=== PATIENT | female | born 2000 | race African-American/Black ===

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

== ENCOUNTER 2019-02-21 19:21 | Emergency (ER) | payer MEDICAID, OTHER ==
--- NOTE | 2019-02-21 19:52 | ED ---
Skin Complaint - HPI Summary HPI Summary: This patient is a 18 year old female presenting to [facility] with a chief complaint of abscess to her left inner breast since approximately four days ago. She states she is prone to these abscesses and has not had one in about a year. She states they would normally bertha it. Patient states she has been applying hot compress but area is progressively getting worse. She states they always happen in the same places and she has been trying to get surgery for it. She states increased pain when she is laying supine. Medications reviewed, allergies noted. - History of Current Complaint Chief Complaint: EDRashSkinAbscess Time Seen by Provider: 02/21/19 19:46 Stated Complaint: ABCESS LT BREAST PER PT Hx Obtained From: Patient Hx Last Menstrual Period: 12/28/2017 Onset/Duration: Started Days Ago Pain Intensity: 10 Pain Scale Used: 0-10 Numeric - Allergy/Home Medications Allergies/Adverse Reactions: Allergies Allergy/AdvReac Type Severity Reaction Status Date / Time No Known Allergies Allergy Verified 02/21/19 19:27 PMH/Surg Hx/FS Hx/Imm Hx Endocrine/Hematology History: Reports: Hx Diabetes - "Borderline" per patient Cardiovascular History: Denies: Hx Congenital Heart Disease Respiratory History: Denies: Hx Bronchopulmonary Dysplasia, Hx Chronic Bronchitis Neurological History: Denies: Hx CVA, Hx Dementia - Surgical History Surgery Procedure, Year, and Place: TONSILLECTOMY Infectious Disease History: No Infectious Disease History: Denies: Traveled Outside the [place] in Last 30 Days - Family History Known Family History: Positive: Diabetes Negative: Seizure Disorder - Social History Alcohol Use: Occasionally Substance Use Type: Reports: Marijuana Smoking Status (MU): Never Smoked Tobacco Review of Systems Negative: Fever Positive: Other - Abscess over left breast and associated pain. All Other Systems Reviewed And Are Negative: Yes Physical Exam - Summary Physical Exam Summary: Constitutional: Well-developed, Well-nourished, Alert. (-) Distressed Skin: Warm, Dry. Over the medial margin of the left breast, fluctuance, 3x3 abscess with multiple incision scars present. No fluctuance or drainage tracking into the breast itself. HENT: Normocephalic; Atraumatic Eyes: Conjunctiva normal Neck: Musculoskeletal ROM normal neck. (-) JVD, (-) Stridor, (-) Tracheal deviation Cardio: Rhythm regular, rate normal, Heart sounds normal; Intact distal pulses; Radial pulses are 2+ and symmetric. (-) Murmur Pulmonary/Chest wall: Effort normal. (-) Respiratory distress, (-) Wheezes, (-) Rales Abd: Soft, (-) tenderness, (-) Distension, (-) Guarding, (-) Rebound Musculoskeletal: (-) Edema Lymph: (-) Cervical adenopathy Neuro: Alert, Oriented x3 Psych: Mood and affect Normal Triage Information Reviewed: Yes Vital Signs On Initial Exam: Initial Vitals Temp Pulse Resp BP Pulse Ox 99.4 F 94 18 141/81 98 02/21/19 19:23 02/21/19 19:23 02/21/19 19:23 02/21/19 19:23 02/21/19 19:23 Vital Signs Reviewed: Yes Procedures - Sedation Patient Received Moderate/Deep Sedation with Procedure: No - Incision and Drainage Left Medial Breast Anesthesia: Local, Lidocaine - 8.0% Instrument(s): Scalpel - 11 blade Packing: Drain - Moderate amount of puss Diagnostics - Vital Signs Vital Signs Temp Pulse Resp BP Pulse Ox 02/21/19 19:23 99.4 F 94 18 141/81 98 - Laboratory Lab Statement: Any lab studies that have been ordered have been reviewed, and results considered in the medical decision making process. Course/Dx - Course Course Of Treatment: Patient is here with a left chest wall abscess. Patient's had recurrent abscesses in the same location. Patient does not have evidence of an actual breast abscess. Patient had a bedside ultrasound which showed a small, contained abscess cavity. Patient had successful incision and drainage of her abscess. Patient had no surrounding cellulitis and was not started on antibiotics. - Diagnoses Provider Diagnoses: Breast abscess Discharge ED - Sign-Out/Discharge Documenting (check all that apply): Patient Departure - Discharge - Discharge Plan Condition: Stable Disposition: HOME Patient Education Materials: Abscess (ED) Referrals: Kenyetta Lopez NP [Primary Care Provider] - 1 Day Additional Instructions: Motrin 600 Mg every 6 hours per pain. Change gauze as needed. Come back if you have fever, worsening redness, worsening swelling,. - Billing Disposition and Condition Condition: STABLE Disposition: Home - Attestation Statements Document Initiated by Scribe: Yes Documenting Scribe: Major Huber Provider For Whom Scribe is Documenting (Include Credential): Brian Mendez MD Scribe Attestation: I, Major Huber, scribed for Brian Mendez MD on 02/21/19 at 2129. Scribe Documentation Reviewed: Yes Provider Attestation: The documentation as recorded by the scribe, Major Huber accurately reflects the service I personally performed and the decisions made by me, Brian Mendez MD Status of Scribe Document: Viewed
[2019-02-21] MEDS ORDERED: Lidocaine 1% MPF ** 5 ML VIAL INJ ONE (19:54)
[2019-02-21] MEDS ORDERED: Morphine 4 MG/ML VIAL (1 ml) 4 MG/ML VIAL IM ONE (20:21)
[2019-02-21] MEDS ORDERED: Ibuprofen TAB* 600 MG PO ONE (20:57)
[2019-02-21 21:17] VITALS: BP 140/90
== END 2019-02-21 21:23 | disposition home or self-care (01) ==
LOC: ED 19:21
DX: N61.1 Abscess of the breast and nipple (principal)
CPT/HCPCS: 10060; 96372; 99283; A9270-GY; J2270

== ENCOUNTER 2019-03-15 07:33 | Emergency (ER) | payer MEDICAID ==
[2019-03-15] MEDS ORDERED: Lidocaine 2.5%/Prilocain 2.5%* 5 GM TUBE TOPICAL ONE (07:50)
--- OUTSIDE RECORDS SUMMARY | 2019-03-15 07:56 | XMS REPORT | Summary of Care ---
:2000 Author Organization [facility] Address [address] [address] Care Team Providers Name Role Phone Nallely Nunez Primary Care Provider Reason for Referral Refer to Department Only (Routine) Status Reason Specialty Diagnoses / Referred By Referred To Procedures Contact Contact Pending Review PLASTIC SURGERY Diagnoses Breast abscess of female Mayra, / [facility] [address] [place] [address] Reason for Visit Reason Comments Establish Care abcess on both breast started 2yrs ago, currently has some on both breast Encounter Details Date Type Department Care Team Description 03/14/2019 Office Visit Mounika Nunez, Anxiety and depression ( Primary Dx); Crispin Browning NP Encounter for screening for human immunodeficiency virus (HIV); [address] [place] [address] Encounter for screening for diabetes mellitus; [place] [address] [place] [address] Need for vaccination; [phone] Screening for lipid disorders; [phone] Breast abscess of female (Fax) Allergies No Known Allergiesdocumented as of this encounter (statuses as of 03/14/2019) Medications Medication Sig Dispensed Refills Start Date End Date Status metFORMIN (GLUCOPHAGE) Take 500 mg by 0 Active 500 MG Oral Tab mouth TWICE DAILY. Cholecalciferol (VITAMIN Take by mouth 0 Active D3 PO) DAILY. buPROPion XL (WELLBUTRIN Take 1 Tab by 30 Tab 1 03/14/2019 Active XL) 150 MG Oral TABLET SR mouth DAILY. 24 HR 24 hour tabletIndications: Anxiety and depression documented as of this encounter (statuses as of 03/14/2019) Active Problems Problem Noted Date Pre-diabetes documented as of this encounter (statuses as of 03/14/2019) Immunizations Name Administration Dates Next Due Influenza (IM) Preservative Free 03/14/2019 documented as of this encounter Social History Tobacco Use Types Packs/Day Years Used Date Never Smoker Smokeless Tobacco: Never Used Alcohol Use Drinks/Week oz/Week Comments Never Alcohol Habits Answer Date Recorded How often do you have a drink containing alcohol? Never 03/14/2019 How many drinks containing alcohol do you have on a typical Not asked day when you are drinking? How often do you have six or more drinks on one occasion? Not asked Sex Assigned at Date Recorded Not on file Job Start Date Occupation Industry Not on file Not on file Not on file Travel History Travel Start Travel End No recent travel history available. documented as of this encounter Last Filed Vital Signs Vital Sign Reading Time Taken Comments Blood Pressure 122/58 03/14/2019 2:03 PM EST Pulse 76 03/14/2019 2:03 PM EST Temperature 36.9 03/14/2019 2:03 PM EST C (98.4 F) Respiratory Rate - - Oxygen Saturation 98% 03/14/2019 2:03 PM EST Inhaled Oxygen Concentration - - Weight 130.6 kg (288 lb) 03/14/2019 2:03 PM EST Height 170.2 cm (5' 7") 03/14/2019 2:03 PM EST Body Mass Index 45.11 03/14/2019 2:03 PM EST documented in this encounter Patient Instructions Patient InstructionsNallely Nunez NP - 03/14/2019 2:00 PM EST Schedule eye exam [facility] - [phone] List of therapists given. Referral to plastic surgery ([place]) - please schedule this appointment on your way out Wellbutrin - one tab daily. Fasting labs today - I'll let you know if you should restart the metformin Follow up in 1-2 weeks. You may feel under the weather after receiving the Influenza vaccine(s), and your arm may be sore - you can take tylenol and ibuprofen over the counter for this. This is an expected immune response tothe vaccine. I have prescribed you a medication for Depression and Anxiety called Wellbutrin. Please take this once daily and follow up with me in 1-2 weeks, at which point we can increase your dose if tolerated. Some side effects of these medications can include decreased sexual desire, weight gain, and drowsiness. I have given you a list of therapists in the area, please call to get in to see one of your choice. As we discussed this medication increases risk of suicide in your age group. If you have any thoughts of harming yourself or others, please go immediately to the emergency room. Suicide Hotline - Depression WHAT YOU NEED TO KNOW: What is depression? Depression is a medical condition that causes feelings of sadness or hopelessness that do not go away. Depression may cause you to lose interest in things you used to enjoy. These feelings may interfere with your daily life. What causes or increases my risk for depression? Depression may be caused by changes in brain chemicals that affect your mood. Your risk for depression may be higher if you have any of the following: Stressful events such as the of a loved one, unemployment, childhood trauma, divorce, or domestic abuse A chronic medical condition such as diabetes, heart disease, or cancer Parents, siblings, or other family members with a history of depression Drug or alcohol abuse What are the signs and symptoms of depression? Appetite changes, or weight gain or loss Trouble going to sleep or staying asleep, or sleeping too much Fatigue or lack of energy Feeling restless, irritable, or withdrawn Feeling worthless, hopeless, discouraged, or guilty Trouble concentrating, remembering things, doing daily tasks, or making decisions Thoughts about hurting or killing yourself How is depression diagnosed? Your healthcare provider will ask about your symptoms and how long youhave had them. He or she will ask if you have any family members with depression. Tell your healthcare provider about any stressful events in your life. He or she may ask about any other health conditions or medicines you take. How is depression treated? Therapy may be used to treat your depression. A therapist will help you learn to cope with your thoughts and feelings. This can be done alone or in a group. It may also be done with family members or a significant other. Antidepressant medicine may be given to improve or balance your mood. You may need to take this medicine for several weeks before you begin to feel better. Tell your healthcare provider about anyside effects or problems you have with your medicine. The type or amount of medicine may need to be changed. How can I manage depression? Get regular physical activity. Try to exercise for 30 minutes, 3 to 5 days a week. Work with your healthcare provider to develop an exercise plan that you enjoy. Physical activity may improve your symptoms. Get enough sleep. Create a routine to help you relax before bed. You can listen to music, read, or do yoga. Try to go to bed and wake up at the same time every day. Sleep is important for emotional health. Eat a variety of healthy foods from all of the food groups. A healthy meal plan is low in fat,salt, and added sugar. Ask your healthcare provider for more information about a meal plan that is right for you. Do not drink alcohol or use drugs. Alcohol and drugs can make your symptoms worse. Call 911 for any of the following: You think about harming yourself or someone else. When should I contact my healthcare provider? Your symptoms do not improve. You cannot make it to your next appointment. You have new symptoms. You have questions or concerns about your condition or care. CARE AGREEMENT: You have the right to help plan your care. Learn about your health condition and how it may be treated. Discuss treatment options with your caregivers to decide what care you want to receive. You always have the right to refuse treatment. The above information is an student financial aid manager only. It is not intended as medical advice for individual conditions or treatments. Talk to your doctor, nurse or pharmacist before following any medical regimen to see if it is safe and effective for you. 2016 [employer]. Information is for End User's use only and may not be sold, redistributed or otherwise used for commercial purposes. All illustrations and images included in CareNotes are the copyrighted property of [employer] or [employer]. , Anxiety WHAT YOU NEED TO KNOW: What do I need to know about anxiety? Anxiety is a condition that causes you to feel worry or fear.Family or work stress, smoking, caffeine, and alcohol can increase your risk for anxiety. Certain medicines or health conditions can also increase your risk. Anxiety may begin gradually and can become a long-term condition if it is not managed or treated. What other common signs and symptoms may occur with anxiety? Fatigue or muscle tightness Shaking, restlessness, or irritability Problems focusing Trouble sleeping Feeling jumpy, easily startled, or dizzy Rapid heartbeat or shortness of breath How is anxiety diagnosed? Your healthcare provider will ask when your symptoms began, what triggersthem, and if anxiety affects your daily activities. He will also ask about your medical history and if you have family members with a similar condition. He may ask about your past and present alcohol, nicotine, or drug use. Blood tests are done to check your thyroid hormone levels. These tests can also give information about your overall health, and may help find the cause of your symptoms. An EKG test records your heart rhythm and how fast your heart beats. It may be used to see if a heart problem is causing your symptoms. How is anxiety treated? You may get medicines to help you feel calm and relaxed , and decrease your symptoms. Healthcare providers will treat any medical condition that may be causing your symptoms. How can I manage anxiety? Go to counseling as directed. Cognitive behavioral therapy can help you understand and change how you react to events that trigger your symptoms. Find ways to manage your symptoms. Activities such as exercise, meditation , or listening to music can help you relax. Practice deep breathing. Breathing can change how your body reacts to stress. Focus on taking slow, deep breaths several times a day, or during an anxiety attack. Breathe in through your nose andout through your mouth. Do not smoke. Nicotine can increase your anxiety. Do not use e-cigarettes or smokeless tobaccoin place of cigarettes or to help you quit. They still contain nicotine. Ask your healthcare provider for information if you currently smoke and need help quitting. Do not have caffeine. Caffeine can make your symptoms worse. Do not have foods or drinks that are meant to increase your energy level. Limit or do not drink alcohol. Ask your healthcare provider if alcohol is safe for you. You may not be able to drink alcohol if you take certain anxiety or depression medicines. Limit alcohol to 1 drink per day if you are a woman. Limit alcohol to 2 drinks per day if you are a man. A drink of alcohol is 12 ounces of beer, 5 ounces of wine, or 1 ounces of liquor. Call 911 if: You have chest pain, tightness, or heaviness that may spread to your shoulders, arms, jaw, neck, or back. You feel like hurting yourself or someone else. When should I seek immediate care? You feel dizzy, lightheaded, or faint. When should I contact my healthcare provider? Your symptoms get worse or do not get better with treatment. You think your medicine may be causing side effects. Your anxiety keeps you from doing your regular daily activities. You have new symptoms since your last visit. You have questions or concerns about your condition or care. CARE AGREEMENT: You have the right to help plan your care. Learn about your health condition and how it may be treated. Discuss treatment options with your caregivers to decide what care you want to receive. You always have the right to refuse treatment. The above information is an student financial aid manager only. It is not intended as medical advice for individual conditions or treatments. Talk to your doctor, nurse or pharmacist before following any medical regimen to see if it is safe and effective for you. 2016 [employer]. Information is for End User's use only and may not be sold, redistributed or otherwise used for commercial purposes. All illustrations and images included in CareNotes are the copyrighted property of [employer]. or [employer]. Patient Education Intrauterine Devices (IUD) The Basics Written by the doctors and editors at [facility] What is an intrauterine device?An intrauterine device (IUD) is a type of control. It is a small, T-shaped device that a doctor or nurse puts in your uterus by going through your vagina and cervix (figure 1). These devices are made of flexible plastic and have 2 thin plastic stringsthat hang out of the cervix. They are very small a little more than 1 inch (2.5 cm ) in width and length. An IUD is one of the safest, most effective methods for preventing . It is a good choice for women or teens who do not want to get for at least 1 year. Some women use IUDs for reasons other than control. For example, 1 type of IUD can be used to treat heavy, painful periods. The other type can be used to prevent if it is put in within 5 days after a woman has sex without control. This is known as "emergency contraception." What are the different types of IUDs?There are 2 types of IUDs available in the [facility]. One type releases copper, and the other type releases the hormone progestin. Copper-containing IUD There is only 1 copper-containing IUD. It is called Paragard (picture 1) and can stay in your uterus for up to 10 years to prevent . Some women who use it getheavier or longer periods than they had before getting the IUD. Paragard also can be used for emergency contraception. Progestin-releasing IUD There are 4 progestin-releasing IUDs, called Mirena, Kyleena, Megan, and Liletta. Mirena (figure 2), Kyleena, and Liletta can stay in your uterus for up to 5 years to prevent . Megan can stay in place for up to 3 years. Many women who use progestin-releasing IUDs have nurse substance abuse, less painful periods than they had before getting the IUD. Some women stop getting a period at all, but this is not harmful and does not need to be treated. Regular periods return when the device is taken out. Other types of IUDs are also available outside of the [place]. What are the benefits of using an IUD?The benefits of using an IUD include: IUDs are very effective. Fewer than 1 in 100 women who use these devices get during the first year of using them. You do not have to remember to do anything or take any control medicines on a regular basis. IUDs have few side effects. IUDs do not contain estrogen, a hormone that some women can't or don't want to take. If you decide you want to get , you can have the IUD taken out. If you use an IUD for several years, it costs less overall than many other types of control. That's because there are no costs after you have it inserted. There is evidence that using an IUD lowers your risk of getting cervical cancer. What are the downsides of an IUD?The downsides of an IUD include: Unlike condoms, an IUD does not protect you against infections you can catch during sex, called"sexually transmitted diseases" or "STDs." But you and your partner can use a condom to prevent spreading infections. There is a small chance the IUD will come out during your period. If this happens, you will need a new IUD. If you see your IUD in your underwear, on your pad, or in the toilet, call your doctor or nurse. The initial cost is higher than the cost of other methods. But, there are no more costs after it is inserted. Only a doctor or nurse can insert or remove an IUD. You should not get an IUD if you recently had an infection that spread to your uterus and other nearby organs, called a "pelvic infection." STDs such as chlamydia and gonorrhea can cause pelvic infections. Which type of IUD is best for me?Your nurse or doctor can help you choose the right IUD for you. Paragard might be a good choice if you: Want or need to avoid hormones. Want to avoid big changes in your period, such not having any periods or bleeding or spotting when you might not expect it. Want control for up to 10 years Mirena, Kyleena, Megan, or Liletta might be a good choice if you: Have heavy, painful periods. These IUDs can make your periods nurse substance abuse and less painful. Want control for up to 5 years, depending on which device you choose Does it hurt to have an IUD put in?You will likely feel some discomfort and slight cramping after the nurse or doctor puts the IUD into your uterus. Women who have not had a baby often feel more discomfort than women who have had a baby. The cramps generally go away within a day. Zlsp-[id number]-[id number] pain medicines like ibuprofen (sample brand names: Advil, Motrin) or naproxen ( sample brandname: Aleve) can help cramps go away faster. After the IUD is in place, you should not be able to feel it. Should I see a doctor or nurse?If you have an IUD, see your doctor or nurse right awayif: You have bad pain in your lower belly Your period is late or very different from normal You cannot feel the string of the IUD or if the string seems shorter than usual You think your IUD might have moved or fallen out You had sex with someone who has or might have an STD, or you think you have an STD You have an unexplained fever All topics are updated as new evidence becomes available and our peer review process is complete. This topic retrieved from [employer] on: Jan 01, 2019. Topic 13290 Version 11.0 Release: 27.4.5 - C27.318 [employer]. and/or its affiliates.All rights reserved. figure 1: Female reproductive anatomy These are the internal organs that make up a woman's reproductive system. Graphic 71094 Version 5.0 picture 1: Paragard IUD The copper-releasing intrauterine device (IUD) is called Paragard. It is inserted into the uterus toprevent . Graphic 04766 Version 3.0 figure 2: IUDs This picture [id number] ofIUD. There are different IUDs available. They are placed inside the uterus to help prevent . Graphic 87191 Version 13.0 Consumer Information Use and Disclaimer This information is not specific medical advice and does not replace information you receive from your health care provider. This is only a brief summary of general information. It does NOT include allinformation about conditions, illnesses, injuries, tests, procedures, treatments, therapies, discharge instructions or life-style choices that may apply to you. You must talk with your health care provider for complete information about your health and treatment options. This information should not beused to decide whether or not to accept your health care provider's advice, instructions or recommendations. Only your health care provider has the knowledge and training to provide advice that is right for you.The use of [employer] content is governed by the [employer] Terms of Use. 2019 [employer]. All rights reserved. Copyright 2019[employer]. and/or its affiliates.All rights reserved. documented in this encounter Progress Notes Nallely Nunez NP - 03/14/2019 2:00 PM EST PATIENT: Donald Jackson : 2000 DATE OF SERVICE: 03/14/2019 CHIEF COMPLAINT: Chief Complaint Patient presents with Establish Care abcess on both breast started 2yrs ago, currently has some on both breast Subjective HISTORY OF PRESENT ILLNESS: Donald Jackson is a 18-y.o. female. HPI Here to establish care. [facility] P[facility] - transitioning to adult care. Ran out of metformin and vitamin D - last took the metformin December. 500 mg twice daily. Thinks for prediabetes but no blood work in "years" No antidepressants. Endorses depression and anxiety since about age 15. Never really addressed before. When asked by previous providers she told them no depression but now would like treatment. No suicidal ideation. Feels tired mostly, lack of motivation. Not elaborating on reasons for depression, states "a lot of things have happened in my life". Abscesses on both breasts that are chronic, have been drained several times and keep coming back in the same spot. Has seen surgeon in the past and told if it returns they would do surgery to remove, but has returned a few times and still no suergery. No fevers chills malaise no constituational symptoms no drainage. Went to ER 02/21 and had left side abscess drained, ultrasound done at that time. LMP: Ended on [place]. Irregular - comes when it feels like. Heavy, bad cramps. Since age 14. Has had blood drawn to evaluate. Never treated. She was on control pills for a month but it made the cramps worse. Started on this by firearms specialist. End of 2018. Family or personal history of breast or ovarian cancer: None Eye Exam: >1 year. Blurred vision, she is supposed to wear glasses but her sisters lost them. Dental Exam: 6 months, no dental problems. Specialists: None. Diet: No special diet. Likes junk food - if she eats (skips meals a lot - no breakfast, often no lunch). Water: A lot. Bottles - x6. Exercise: Walks often. Past Medical History: Diagnosis Date Anxiety Asthma Depression Pre-diabetes Metformin Family History Problem Relation Age of Onset No Known Problems Mother Diabetes Father type 2 No Known Problems Sister No Known Problems Brother No Known Problems Sister No Known Problems Sister No Known Problems Sister No Known Problems Maternal Grandmother No Known Problems Maternal Grandfather Stroke Paternal Grandmother Diabetes Paternal Grandmother type 2 Asthma Paternal Grandmother No Known Problems Paternal Grandfather Current Outpatient Medications Medication Sig buPROPion XL (WELLBUTRIN XL) 150 MG Oral TABLET SR 24 HR 24 hour tablet Take 1 Tab by mouth DAILY. Cholecalciferol (VITAMIN D3 PO) Take by mouth DAILY. metFORMIN (GLUCOPHAGE) 500 MG Oral Tab Take 500 mg by mouth TWICE DAILY. No current facility-administered medications for this visit. No Known Allergies Social History Socioeconomic History Marital status: Single Spouse name: Not on file Number of children: Not on file Years of education: Not on file Highest education level: Not on file Occupational History Not on file Social Needs Financial resource strain: Not on file Food insecurity Worry: Not on file Inability: Not on file Transportation needs Medical: Not on file Non-medical: Not on file Tobacco Use Smoking status: Never Smoker Smokeless tobacco: Never Used Substance and Sexual Activity Alcohol use: Never Frequency: Never Drug use: Yes Types: Marijuana Sexual activity: Never Lifestyle Physical activity Days per week: Not on file Minutes per session: Not on file Stress: Not on file Relationships Social connections Talks on phone: Not on file Gets together: Not on file Attends catholic service: Not on file Active member of club or organization: Not on file Attends meetings of clubs or organizations: Not on file Relationship status: Not on file Intimate partner violence Fear of current or ex partner: Not on file Emotionally abused: Not on file Physically abused: Not on file Forced sexual activity: Not on file Other Topics Concern Not on file Social History Narrative Lives with grandmother and grandfather. 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 [employer] Pets: none Over the last 2 weeks, have you been feeling down, depressed, anxious, or hopeless?: 3 Over the past 2 weeks, have you felt little interest or pleasure in doing things ?: 2 Trouble falling or staying asleep, or sleeping too much?: 2 Feeling tired or having little energy?: 2 Poor appetite or overeating?: 3 Feeling bad about yourself or that you are a failure or have let yourself or your family down?: 3 Trouble concentrating on things, such as reading the newspaper or watching TV?: 0 Moving or speaking so slowly that other people notice OR being fidgety and restless?: 0 Thoughts that you would be better off or of hurting yourself in some way?: 2 PHQ-9 TOTAL SCORE: 17 How difficult have these problems made it for you to do your work, take care of things at home or get along with people?: Somewhat difficult In the past 2 years, have you felt depressed or sad most days, even if you felt ok?: Yes REVIEW OF SYSTEMS: Review of Systems Constitutional: Negative for malaise/fatigue. Respiratory: Negative for shortness of breath. Cardiovascular: Negative for chest pain and palpitations. Gastrointestinal: Negative for abdominal pain, nausea and vomiting. Neurological: Negative for headaches. Psychiatric/Behavioral: Positive for depression. Negative for substance abuse and suicidal ideas. The patient is nervous/anxious. The patient does not have insomnia. Objective PHYSICAL EXAM: VITALS: BP 122/58 (BP Location: Left arm, Patient Position: Sitting) | Pulse 76 | Temp 98.4 F(36.9 C) (Tympanic) | Ht 5' 7" (1.702 m) | Wt 288 lb (130.6 kg) | SpO2 98% | BMI 45.11 kg/m Body mass index is 45.11 kg/m. Physical Exam Vitals signs and nursing note reviewed. Constitutional: General: She is not in acute distress. Appearance: Normal appearance. She is well-developed. Cardiovascular: Rate and Rhythm: Normal rate and regular rhythm. Heart sounds: Normal heart sounds. No murmur. No friction rub. No gallop. Pulmonary: Effort: Pulmonary effort is normal. No respiratory distress. Breath sounds: Normal breath sounds. Chest: Chest wall: Mass and swelling present. No tenderness. Neurological: Mental Status: She is alert. Psychiatric: Mood and Affect: Mood and affect normal. Speech: Speech normal. Behavior: Behavior normal. Behavior is cooperative. Depression Screening Over the last 2 weeks, have you been feeling down, depressed, anxious, or hopeless?: 3 Over the past 2 weeks, have you felt little interest or pleasure in doing things ?: 2 Trouble falling or staying asleep, or sleeping too much?: 2 Feeling tired or having little energy?: 2 Poor appetite or overeating?: 3 Feeling bad about yourself or that you are a failure or have let yourself or your family down?: 3 Trouble concentrating on things, such as reading the newspaper or watching TV?: 0 Moving or speaking so slowly that other people notice OR being fidgety and restless?: 0 Thoughts that you would be better off or of hurting yourself in some way?: 2 PHQ-9 TOTAL SCORE: 17 How difficult have these problems made it for you to do your work, take care of things at home or get along with people?: Somewhat difficult In the past 2 years, have you felt depressed or sad most days, even if you felt ok?: Yes ASSESSMENT / IMPRESSION: ICD-9-CM ICD-10-CM 1. Anxiety and depression 300.00 F41.9 buPROPion XL (WELLBUTRIN XL) 150 MG Oral TABLET SR 24 HR 24 hour tablet 311 F32.9 2. Encounter for screening for human immunodeficiency virus (HIV) V73.89 Z11.4 HIV 1,2 ANTIBODY SCREEN HIV 1,2 ANTIBODY SCREEN -one time screening 3. Encounter for screening for diabetes mellitus V77.1 Z13.1 COMPREHENSIVE METABOLIC PANEL GLYCOHEMOGLOBIN A1C GLYCOHEMOGLOBIN A1C COMPREHENSIVE METABOLIC PANEL -fasting labs 4. Need for vaccination V05.9 Z23 OR FLU VACCINE PRES FREE 6MOS+ ADMINISTRATION VACCINE SINGLE 5. Screening for lipid disorders V77.91 Z13.220 LIPID PROFILE LIPID PROFILE -fasting labs 6. Breast abscess of female 611.0 N61.1 REFER TO PLASTIC SURGERY -Will refer to plastic surgeon for definitive removal - discussed with patient that draining abscess will return -No signs of infection currently Plan 1. Encounter for screening for human immunodeficiency virus (HIV) One time screening - HIV 1,2 ANTIBODY SCREEN; Future - HIV 1,2 ANTIBODY SCREEN 2. Encounter for screening for diabetes mellitus Fasting labs - COMPREHENSIVE METABOLIC PANEL; Future - GLYCOHEMOGLOBIN A1C; Future - GLYCOHEMOGLOBIN A1C - COMPREHENSIVE METABOLIC PANEL 3. Need for vaccination - OR FLU VACCINE PRES FREE 6MOS+ - ADMINISTRATION VACCINE SINGLE 4. Screening for lipid disorders Fasting labs - LIPID PROFILE; Future - LIPID PROFILE 5. Breast abscess of female -no signs of infection, return if develop s&s of infection - REFER TO PLASTIC SURGERY; Future 6. Anxiety and depression Start wellbutrin for depression predominantly, follow up in 1-2 weeks. - buPROPion XL (WELLBUTRIN XL) 150 MG Oral TABLET SR 24 HR 24 hour tablet; Take 1 Tab by mouth DAILY. Dispense: 30 Tab; Refill: 1 Schedule eye exam Call [facility] - [phone] List of therapists given. Referral to plastic surgery (In [place]) - please schedule this appointment on your way out Wellbutrin - one tab daily. Fasting labs today - I'll let you know if you should restart the metformin Follow up in 1-2 weeks. You may feel under the weather after receiving the Influenza vaccine(s), and your arm may be sore - you can take tylenol and ibuprofen over the counter for this. This is an expected immune response tothe vaccine. I have prescribed you a medication for Depression and Anxiety called Wellbutrin. Please take this once daily and follow up with me in 1-2 weeks, at which point we can increase your dose if tolerated. Some side effects of these medications can include decreased sexual desire, weight gain, and drowsiness. I have given you a list of therapists in the area, please call to get in to see one of your choice. As we discussed this medication increases risk of suicide in your age group. If you have any thoughts of harming yourself or others, please go immediately to the emergency room. Suicide Hotline - Author: Nallely Nunez NP 03/14/2019 16:49 documented in this encounter Plan of Treatment Date Type Specialty Care Team Description 03/29/2019 Office Visit Family Practice Nallely Nunez NP [address] [place] [address] [phone] Name Type Priority Associated Diagnoses Date/Time COMPREHENSIVE METABOLIC Lab Routine Encounter for screening 03/14/2019 3: 27 PM PANEL for diabetes mellitus EST HIV 1,2 ANTIBODY SCREEN Lab Routine Encounter for screening 03/14/2019 3: 27 PM for human immunodeficiency EST virus (HIV) GLYCOHEMOGLOBIN A1C Lab Routine Encounter for screening 03/14/2019 3:27 PM for diabetes mellitus EST LIPID PROFILE Lab Routine Screening for lipid 03/14/2019 3:27 PM disorders EST Name Type Priority Associated Diagnoses Order Schedule COMPREHENSIVE METABOLIC Lab Routine Encounter for screening Expected: PANEL for diabetes mellitus 03/14/2019 (Approximate), Expires: 03/14/2020 HIV 1,2 ANTIBODY SCREEN Lab Routine Encounter for screening Expected: for human 03/14/2019 immunodeficiency virus (Approximate), (HIV) Expires: 03/14/2020 ADMINISTRATION VACCINE Procedures Routine Need for vaccination Ordered: SINGLE 03/14/2019 GLYCOHEMOGLOBIN A1C Lab Routine Encounter for screening Expected: for diabetes mellitus 03/14/2019 (Approximate), Expires: 03/14/2020 LIPID PROFILE Lab Routine Screening for lipid Expected: disorders 03/14/2019 (Approximate), Expires: 03/14/2020 Name Type Priority Associated Diagnoses Order Schedule REFER TO PLASTIC Referral Routine Breast abscess of female Expected: 2019, SURGERY Expires: 03/14/2020 Health Maintenance Due Date Last Done Comments DTaP/Tdap/Td Vaccines (1 - 05/04/2010 Tdap) HPV IMMUNIZATION SERIES (1 - 05/04/2010 Female 2-dose series) HIV SCREENING 05/04/2014 DIABETES SCREENING 05/04/2017 INFLUENZA VACCINE (#1) 2018 DEPRESSION SCREENING 03/14/2020 03/14/2019, 03/14/2019 HEPATITIS A IMMUNIZATION Aged Out No longer eligible based SERIES on patient's age to complete this topic MENINGOCOCCAL VACCINE IMM Aged Out No longer eligible based on patient's age to complete this topic PNEUMOCOCCAL 0-64 YRS Aged Out No longer eligible based on patient's age to complete this topic documented as of this encounter Goals Goal Patient Goal Associated Recent Patient-Stated? Author Type Problems Progress Depression Depression 17 No Mayra screen (PHQ-9) (03/14/2019 Nallely, total score < 5 2:09 PM EST) PATIENT CARE SECRETARY Note: This is an individualized treatment (depression) goal for Donald Jackson: Displayed above is your goal for a depression screening (PHQ-9) score that would indicate good control of your depression. Keep a regular sleep schedule Lifestyle Nallely Story NP Note: This is an individualized lifestyle goal for Donald Jackson: Please maintain a regular sleep schedule. This may help with some symptoms of depression. Take all prescribed medications as Self-management Nallely Story NP directed Note: This is an individualized self-management goal for Donald Jackson: Please take all prescribed medications as directed. 1. Do not skip doses. If you cannot afford your medications, talk with your doctor. 2. Use a pill reminder system such as a pill box if needed. Your pharmacist can help you with this. 3. Contact your Pharmacy 5 days before your medication runs out. If you cannot take your medications for any reasons, talk with your doctor. 4. Please bring all of your medication bottles and inhalers (or a list of all your medications/inhalers) with you to every visit. Potential barriers to meeting all of your care plan goals will continue to be addressed on an ongoing basis. documented as of this encounter Results Not on filedocumented in this encounter Visit Diagnoses Diagnosis Encounter for screening for human immunodeficiency virus (HIV) Special screening examination for other specified viral diseases Encounter for screening for diabetes mellitus Screening for diabetes mellitus Need for vaccination Need for prophylactic vaccination and inoculation against unspecified single disease Screening for lipid disorders Breast abscess of female Inflammatory disease of breast Anxiety and depression Dysthymic disorder documented in this encounter documented as of this encounter
--- NOTE | 2019-03-15 08:17 | ED ---
Skin Complaint - HPI Summary HPI Summary: 18-year-old female presents with abscess to right breast for the past days. States she has a history of this. She denies any fevers or chills. Denies a history of MRSA. She states area has been getting bigger. She states that she is in a significant amount of pain. She had an abscess to the other breast last month that was drained. - History of Current Complaint Chief Complaint: EDRashSkinAbscess Time Seen by Provider: 03/15/19 07:47 Stated Complaint: ABSCESS PER PT Hx Last Menstrual Period: 12/28/2017 Pain Intensity: 7 - Allergy/Home Medications Allergies/Adverse Reactions: Allergies Allergy/AdvReac Type Severity Reaction Status Date / Time No Known Allergies Allergy Verified 02/21/19 19:27 PMH/Surg Hx/FS Hx/Imm Hx Endocrine/Hematology History: Reports: Hx Diabetes - "Borderline" per patient Cardiovascular History: Denies: Hx Congenital Heart Disease Respiratory History: Denies: Hx Bronchopulmonary Dysplasia, Hx Chronic Bronchitis Neurological History: Denies: Hx CVA, Hx Dementia - Surgical History Surgery Procedure, Year, and Place: TONSILLECTOMY Infectious Disease History: No Infectious Disease History: Denies: Traveled Outside the [place] in Last 30 Days - Family History Known Family History: Positive: Diabetes Negative: Seizure Disorder - Social History Alcohol Use: Occasionally Substance Use Type: Reports: Marijuana Smoking Status (MU): Never Smoked Tobacco Review of Systems Negative: Fever Negative: Chest Pain Negative: Shortness Of Breath Positive: Other - abscess right breast All Other Systems Reviewed And Are Negative: Yes Physical Exam Triage Information Reviewed: Yes Vital Signs On Initial Exam: Initial Vitals Temp Pulse Resp BP Pulse Ox 98.0 F 87 16 138/84 99 03/15/19 07:35 03/15/19 07:35 03/15/19 07:35 03/15/19 07:35 03/15/19 07:35 Vital Signs Reviewed: Yes Appearance: Positive: Well-Appearing Skin: Positive: Warm, Dry, Other - induration and erythema with area of flutunace to right breast Head/Face: Positive: Normal Head/Face Inspection Eyes: Positive: Normal, Conjunctiva Clear ENT: Positive: Pharynx normal Respiratory/Lung Sounds: Positive: Clear to Auscultation, Breath Sounds Present Cardiovascular: Positive: Normal, RRR Musculoskeletal: Positive: Normal Neurological: Positive: Normal Psychiatric: Positive: Normal Procedures - Sedation Patient Received Moderate/Deep Sedation with Procedure: No - Incision and Drainage right breast Site: right breast Anesthesia: Topical, Local Instrument(s): Scalpel Diagnostics - Vital Signs Vital Signs Temp Pulse Resp BP Pulse Ox 03/15/19 07:35 98.0 F 87 16 138/84 99 - Laboratory Lab Statement: Any lab studies that have been ordered have been reviewed, and results considered in the medical decision making process. Course/Dx - Course Course Of Treatment: 18-year-old female presents with abscess to right breast for the past days. States she has a history of this. She denies any fevers or chills. Denies a history of MRSA. She states area has been getting bigger. She states that she is in a significant amount of pain. She had an abscess to the other breast last month that was drained. On exam has right breast abscess. Ultrasound confirms there appears to be multiple pus pocket. ID area. one area was cystic fluid other area with pus. will place on bactrim. told follow up with surgery. patient understand and agrees with plan. - Differential Diagnoses - Skin Complaint Differential Diagnoses: Abscess, Cellulitis, Contact Dermatitis - Diagnoses Provider Diagnoses: Abscess Discharge ED - Sign-Out/Discharge Documenting (check all that apply): Patient Departure - Discharge Plan Condition: Good Disposition: HOME Prescriptions: Sulfamethox/Trimethoprim DS* [Bactrim DS 800/160 TAB*] 1 tab PO BID #19 tab Patient Education Materials: Abscess (ED) Referrals: Bishop Zazueta MD [Medical Doctor] - Kenyetta Lopez NP [Primary Care Provider] - Additional Instructions: Take antibiotic twice a day for 10 days, first dose given in ED Apply warm compresses to area follow up with surgery Take ibuprofen or Tylenol for pain every 6 hours Follow up with primary within 3 days Return to ED if develop fever, area of redness spreads, or any new or worsening symptoms - Billing Disposition and Condition Condition: GOOD Disposition: Home
[2019-03-15] MEDS ORDERED: Morphine 4 MG/ML VIAL (1 ml) 4 MG/ML VIAL IM ONE (08:57)
[2019-03-15] MEDS ORDERED: Sulfamethox/Trimethoprim DS 800/160* TAB PO ONE (09:48)
[2019-03-15 10:10] VITALS: BP 154/93
== END 2019-03-15 10:09 | disposition home or self-care (01) ==
LOC: ED 07:33
DX: N61.1 Abscess of the breast and nipple (principal)
CPT/HCPCS: 10060; 87070; 87076; 87077; 87185; 87205; 87640; 87641; 96372; 99282; A9270-GY; J2270